=== PATIENT | male | born 1945 | race Caucasian/White ===

== ENCOUNTER → 2021-01-20 08:37 | Outpatient (CLI) | payer MEDICARE ==
--- NOTE | ~2021-01-20 | ST ---
PATIENT:STONEY STEWART MEDICAL RECORD: [id number] SEX: M [facility] ORDER #: ADMISSION DATE: 01/20/21 AGE OF PATIENT: 75 REFERRING PHYSICIAN: INTERPRETING PHYSICIAN: CRISTHIAN KNOWLES MD DATE OF SERVICE: 01/20/2021 NUCLEAR STRESS TEST GATED: Gated is normal with normal wall motion. Normal EF 64%. SPECT IMAGING: SPECT imaging was performed. Short axis view: Short axis view shows reversible defect from the inferior base down to the mid inferior wall. Horizontal axis: This is confirmed in the horizontal axis with a reversible defect from the inferior base down to the mid inferior wall. Vertical axis: Vertical axis shows good uptake along the lateral wall and septum. FINAL IMPRESSION: 1. Normal gated, normal wall motion, normal EF of 64%. 2. Abnormal SPECT imaging. Reversible defect from the inferior base down the mid inferior wall seen at 2 views. FINAL IMPRESSION: This gentleman with new onset of angina symptomatology. Scan is concerning for initial onset of angina, consider diagnostic angiography. TRANSINT:[id number] Voice Confirmation ID: [id number] DOCUMENT ID: [id number] CRISTHIAN KNOWLES MD CC: [id number] DICTATION DATE: 01/21/21 1351 MERCHANDISE SHOPPER: 01/22/21 0629 DEP CLI 01/20/21 [place] [id number] [place] [id number]
--- NOTE | ~2021-01-20 | EC ---
PATIENT:STONEY STEWART DATE OF SERVICE: 01/20/21 SEX: M MEDICAL RECORD: [id number] DATE OF : 47 [facility] AGE [facility] PAT[facility]: 75 ADMISSION DATE: 01/20/21 REFERRING PHYSICIAN: INTERPRETING PHYSICIAN: CRISTHIAN KNOWLES MD ECHOCARDIOGRAM REPORT ECHO CHARGES 4 ECHO COMPLETE Date: 01/20/21 CLINICAL DIAGNOSIS: HTN/HEART MURMUR ECHOCARDIOGRAPHIC MEASUREMENTS (adult normal given) AC root (d.<3.7cm) 4.0 cm LV Septum d (<1.2 cm> 1.4 cm Valve Excursion 1.8 cm LV Septum (systole) 1.7 cm Left Atria (s.<4.0cm> 3.4 cm LVPW d(<1.2cm) 1.5 cm RV (d.<2.3cm) 3.4 cm LVPW (sytole) 2.0 cm LV diastole(<5.6CM) 5.0 cm MV E-F(>70mm/sec) cm LV systole 3.6 cm LVOT Diameter 2.0 cm MV exc.(>10mm) 1.5 cm Est.ejection fraction (50-75%) % DOPPLER: LVIT cm/sec A 65.0 cm/sec E 41.0 cm/sec LA cm/sec RVSP 16 mmHg LVOT 97 cm/sec AOP1/2T m/s Asc. Ao 120 cm/sec RVOT 67 cm/sec RA cm/sec PA 150 cm/sec AV Gradient Peak 5.79 mmHg AV Mean 2.73 mmHg AV Area 2.9 cm MV Gradient Peak 2.48 mmHg MV Mean 0.84 mmHg MV Area cm COMMENTS: Building Admin: 2 OUSMANE OLVERA Cargo Inspector: 3 Dr. Beckham TAPE# PACS Pericardial Effusion N DATE OF SERVICE: Adequate 2D, color-flow imaging, spectral Doppler, and M-Mode FINDINGS: LVH is present. LV internal dimensions are normal. Wall motion is normal. EF is greater than or equal to 55%. Aortic valve is sclerotic. No evidence of stenosis by Doppler interrogation. Left atrium is normal at 3.4 cm. Mitral valve shows no prolapse. Trace MR. Right side is grossly normal. Trace TR. ECHOCARDIOGRAM REPORT [id number] STONEY STEWART TRANSINT:[id number] Voice Confirmation ID: [id number] DOCUMENT ID: [id number] CRISTHIAN KNOWLES MD CC: [id number] DICTATION DATE: 01/21/21 1358 STRUCTURAL STEEL ERECTOR: 01/21/21 1605 DEP CLI 01/20/21 [place] [id number]
== END | disposition home or self-care (01) ==
LOC: D.HCCARDIO 08:37 → D.HCCECHO 10:30
PROVIDERS: ATTEND Internal Medicine Interventional Cardiology
DX: I20.9 Angina pectoris, unspecified (principal); I10 Essential (primary) hypertension

== ENCOUNTER 2021-01-28 10:55 | Day surgery (SDC) | payer MEDICARE ==
[~2021-01-28] VITALS: Ht 188 cm; Wt 98.2 kg
--- NOTE | ~2021-01-28 | HEMODYNAMI ---
PATIENT:STONEY STEWART MEDICAL RECORD: [id number] : 47 LOCATION:[facility] ADMISSION DATE: 01/28/21 Generatedon:113:17 Patient name: STONEY STEWART Patient #: [id number] SSN: [id number] : 1945 Date of study: 01/28/2021 Page: Of Hemodynamic Procedure Report Patient Data Patient Demographics Procedure consent was obtained First Name: STONEY Gender: Male Last Name: TERRY : 1945 [facility] Initial: YAMILET Age: 75 year(s) Patient #: [id number] Race: SSN: [id number] Additional ID: [id number] Contact details Address: [place] [address] State: [place] City: [place] Zip code: [address] Past Medical History Allergies: No known allergies Admission Admission Data Admission Date: 01/28/2021 Admission Time: 10:55 Arrival Date: 01/28/2021 Arrival Time: 0:00 Admit Source: Other Insurance Payor: Medicare [facility] #: [id number] Height (in.): 74 BSA: 2.26 (m2) Height (cm.): 187.96 BMI: 28.25 (kg/m2) Weight (lbs.): 220 Weight (kg.): 99.79 Lab Results Lab Result Date: 01/28/2021 Lab Result Time: 0:00 Biochemistry Name Units Result Min Max BUN mg/dl 28 --(----)-* 7 18 Creatinine mg/dl 1.2 --(---*)-- 0.6 1.3 eGFR ml/min 63 *-(----)-- 90 120 NONAFRICAN CBC Name Units Result Min Max Hematocrit % 42.1 --(*---)-- 42 54 Hemoglobin g/dl 14.4 --(*---)-- 13.5 17.5 Procedure Procedure Types Cath Procedure Diagnostic Procedure [facility] w/Coronaries Sedation Charges Moderate Sedation 10-24 minutes Procedure Description Procedure Date Procedure Date: 01/28/2021 Procedure Start Time: 13:03 Procedure End Time: 13:16 Procedure Staff Name Function Vidal Kowalski MD Performing Physician Shanell Elliott RT Monitor Michele Pleitez RN Nurse Alexsandra Go RT Scrub Indication Arrhythmias Procedure Data Cath Procedure Fluoroscopy Diagnostic fluoroscopy Total fluoroscopy Time: 4.7 time: 4.7 min min Diagnostic fluoroscopy Total fluoroscopy dose: 879 dose: 879 mGy mGy Contrast Material Contrast Material Type Amount (ml) Isovue 370 67 Entry Location Entry Primary Successful Side Size Upsize Upsize Entry Closure Barth ccessful Closure Location (Fr) 1 (Fr) 2 (Fr) Remarks Device Remarks Radial Right 6 Fr Mechanical artery Short Compression Estimated blood loss: 5 ml Diagnostic catheters Device Type Used For End Catheter Placement DIAGNOSTIC Penfield 110cm 5 Procedure Fr catheter ([id number]) Procedure Complications No complications Procedure Medications Medication Administration Route Dosage 0.9% NaCl I.V. 100 ml/hr Oxygen etCO2 Nasal cannula 2 l/min Heparin Flush Bag added to field 2 bags (1000units/500ml NS) Lidocaine 2% added to field 20 Radial Cocktail added to field 1 syringe (Verapamil 2mg/Nitro 400mcg/Heparin 1500units) Benadryl I.V. 50 mg Versed I.V. 1 mg Fentanyl I.V. 50 mcg Radial Cocktail I.A. 1 syringe (Verapamil 2mg/Nitro 400mcg/Heparin 1500units) Hemodynamics Rest BSA: 2.26 (m2) HGB: 14.4 (g/dl) O2 Consumption: Estimated: 247.63 (ml/min) O2 Co nsumption indexed: Estimated:109.57 (ml/min/m) Heart Rate: 55 (bpm) Pressure Samples Time Site Value (mmHg) Purpose Heart Use Rate(bpm) 13:05 LV 0/-52,-10 Snapshot 133 Gradients Valve Time Site Site Mean SEP/DFP Peak To Heart Use 1 2 (mmHg) (sec/min) Peak Rate (mmHg) (bpm) Aortic 13:05 LV AO 37 Snapshots Pre Cath Intra NCS Post Cath Vital Signs Time Heart Resp SPO2 etCO2 NIBP Rhythm Pain Sedation Rate (ipm) (%) (mmHg) (mmHg) Status Level (bpm) 12:52:04 55 19 93 3.7 88/55(68) NSR 0 (11) 10(A) , No pain 12:56:06 56 14 92 12.6 89/54(68) NSR 0 (11) 10(A) , No pain 13:00:04 55 16 92 40.1 93/65(71) NSR 0 (11) 10(A) , No pain 13:04:05 56 16 94 40.8 94/60(66) NSR 0 (11) 9(A) , No pain 13:08:11 48 15 91 37.1 71/47(65) NSR 0 (11) 9(A) , No pain 13:12:58 57 15 93 39.3 79/49(62) NSR 0 (11) 9(A) , No pain 13:16:55 57 18 93 40.8 84/52(67) NSR 0 (11) 9(A) , No pain Medications Time Medication Route Dose Verified Delivered Reason Notes Effectiveness by by 12:51:24 0.9% NaCl I.V. 100 Michele Michele Per ml/hr Pricilla Pleitez physician RN RN 12:51:35 Oxygen etCO2 2 l/min Michele Michele for low 02 Nasal Lorigan Lorigan sats cannula RN RN 12:51:46 Heparin Flush added 2 bags Michele Michele used for Bag to Lorcharles Pleitez procedure (1000units/500ml field RN RN NS) 12:51:55 Lidocaine 2% added 20ml Michele Michele for local to vial Lorigan Lorigan anesthetic RN RN 12:52:07 Radial Cocktail added 1 Michele Michele used for (Verapamil to syringe Lorigan Lorigan procedure 2mg/Nitro RN RN 400mcg/Heparin 1500units) 12:55:17 Benadryl I.V. 50 mg Michele Michele Per Pricilla Pleitez physician RN RN 13:04:00 Versed I.V. 1 mg Michele Michele for sedation Pricilla Pleitez RN RN 13:04:09 Fentanyl I.V. 50 mcg Michele Michele for sedation Pricilla Pleitez RN RN 13:04:35 Radial Cocktail I.A. 1 Michele Vidal for (Verapamil syringe Lorigan [place] vasodilation 2mg/Nitro MIGUELANGEL LAO 400mcg/Heparin 1500units) Procedure Log Time Note 12:29:59 Informed consent obtained and on chart 12:30:18 Diagnostic Cath Status : Elective 12:30:38 Indication : Arrhythmias 12:30:43 Arrival Date: 01/28/2021 12:00:00 AM 12:30:44 Admit Source: Other 12:30:47 Insurance Payor : Medicare 12:32:06 Patient Height : 74 inches 12:32:13 Patient Weight : 220 lbs 12:32:25 ACC Patient presents with Stable Angina CCS Anginal Class 2--Slight limitation of ordinary activity. 12:32:28 Procedure Status Elective Heart Cath (OP). 12:32:30 Time tracking: Regular hours (M-F 7:00 - 5:00) 12:32:34 Plan of Care:Hemodynamics will remain stable., Cardiac rhythm will remain stable., Comfort level will be maintained., Respiratory function will remain adequate., Patient/ family verbilizes understanding of procedure., Procedure tolerated without complication., Recovers from procedure without complications.. 12:32:41 H&P Date Dictated: 01/12/2021 Within 30 days and on chart.. 12:32:42 Pre-procedure instructions explained to patient. 12:32:43 Pre-op teaching completed and patient verbalized understanding. 12:32:44 Family in waiting room. 12:32:46 Patient NPO since Midnight. 12:32:53 Patient allergic to No known allergies 12:32:57 Alarms reviewed by R. N. 12:32:57 Sharps counted by scrub and verified by R.N. 12:37:52 Lab Result : eGFR NONAFRICAN 63 ml/min 12:37:52 Lab Result : Hemoglobin 14.4 g/dl 12:37:52 Lab Result : BUN 28 mg/dl 12:37:52 Lab Result : Creatinine 1.2 mg/dl 12:37:52 Lab Result : Hematocrit 42.1 % 12:38:24 Michele Pleitez RN sent for patient. Start room use. 12:42:06 Patient received from Pre/Post Procedure Room to CCL 2 Alert and oriented. Tansferred to table in Supine position. 12:42:07 Warm blankets applied, and melyssa hugger turned on for patient comfort. 12:42:08 Correct patient and procedure confirmed by team. 12:42:08 ECG and BP/O2 sat monitors applied to patient. 12:42:17 Is the patient allergic to Iodine/contrast media? No. 12:42:19 Was the patient premedicated? Yes 12:42:20 Is patient on blood thinner?No 12:42:22 Patient diabetic? Yes. 12:42:24 If diabetic: On Metformin? Yes 12:51:03 Vital chart was started 12:51:04 Full Disclosure recording started 12:51:07 Rhythm: sinus bradycardia 12:51:09 Baseline sample Acquired. 12:51:17 If on Metformin: Last Dose? 01/26/2021 12:51:18 ----Pre-sedation anethsthesia assessment.---- 12:51:21 Previous problem with sedation/anesthesia? No ? 12:51:22 Snore? Yes 12:51:23 Sleep apnea? Yes 12:51:24 0.9% NaCl 100 ml/hr I.V. was administered by Michele Pleitez RN; Per physician; Verbal order read back and verified. 12:51:24 Deviated septum? No 12:51:25 Opens mouth fully? Yes 12:51:26 Sticks out tongue? Yes 12:51:28 Airway obstruction? No ? 12:51:30 Dentures? No ] 12:51:35 Oxygen 2 l/min etCO2 Nasal cannula was administered by Michele Pleitez RN; for low 02 sats; Verbal order read back and verified. 12:51:35 Pre procedure: right dorsailis pedis pulse 1+ Palpable, but thready & weak; easily obliterated 12:51:38 Modified Alphonse's test Ulnar < 7 seconds 12:51:40 Patient pain scale 0/10 ?. 12:51:46 Heparin Flush Bag (1000units/500ml NS) 2 bags added to field was administered by Michele Pleitez RN; used for procedure; Verbal order read back and verified. 12:51:46 IV patent on arrival in left antecubital with 0.9% NaCl at [facility]. 12:51:51 Lab results completed and on chart. 12:51:55 Lidocaine 2% 20ml vial added to field was administered by Michele Pleitez RN; for local anesthetic; Verbal order read back and verified. 12:52:07 Radial Cocktail (Verapamil 2mg/Nitro 400mcg/Heparin 1500units) 1 syringe added to field was administered by Michele Pleitez RN; used for procedure; Verbal order read back and verified. 12:53:24 Stress Test: yes; abnormal INFERIOR 12:55:00 Risk of Mortality: 0.1 12:55:02 Risk of blood transfusion: 0.1 12:55:04 Risk of DAWN: 0.2 12:55:08 Right Radial & Right Groin area was prepped with chlora-prep and draped in sterile fashion 12:55:16 Use device set Radial Dx or PCI 12:55:17 Benadryl 50 mg I.V. was administered by Michele Pleitez RN; Per physician; Verbal order read back and verified. 12:55:18 ACIST Syringe (64091) opened to sterile field. 12:55:18 Medline Cath Pack ([id number]) opened to sterile field. 12:55:19 Bag Decanter (2002S) opened to sterile field. 12:55:20 ACIST Hand Control (48885) opened to sterile field. 12:55:21 ACIST Manifold (15421) opened to sterile field. 12:55:23 EMERALD Guide Wire (068-604) opened to sterile field. 12:55:23 SHEATH 6FR RAIN (2279909) opened to sterile field. 12:55:29 MBrace Wrist Support ([id number]) opened to sterile field. 13:00:00 Right groin site verified by team. 13:00:00 Final Timeout: patient, procedure, and site verified with staff and physician. All members of the team are in agreement. 13:00:00 --------ALL STOP TIME OUT------ 13:00:01 Fire Safety Assessment: A--An alcohol-based skin anteseptic being used preoperatively., C--Open oxygen or nitrous oxide is being used., D--An ESU, laser, or fiber-optic light is being used. 13:00:02 Physical assessment completed. ASA score P 2 - A patient with mild systemic disease as per Vidal Kowalski MD. 13:00:03 2) 60-89 Mildly reduced kidney function, and other findings (as for stage 1) point to kidney disease. 13:00:04 Sedation plan: IV Moderate Sedation Medication:Versed, Fentanyl 13:00:04 Maximum allowable contrast dose (3.7 X eGFR X 0.75)175 ml. 13:03:27 Procedure started. 13:03:32 Local anesthetic to right radial artery with Lidocaine 2% by Vidal Kowalski MD.INITIAL ACCESS ONLY 13:03:42 A 6 Fr Short sheath was inserted into the Right Radial artery 13:03:50 A DIAGNOSTIC Penfield 110cm 5 Fr catheter (212115) was advanced over the wire and used for Procedure. 13:04:00 Versed 1 mg I.V. was administered by Michele Pleitez RN; for sedation; Verbal order read back and verified. 13:04:09 Fentanyl 50 mcg I.V. was administered by Michele Pleitez RN; for sedation; Verbal order read back and verified. 13:04:35 Radial Cocktail (Verapamil 2mg/Nitro 400mcg/Heparin 1500units) 1 syringe I.A. was administered by Vidal Kowalski MD; for vasodilation; Verbal order read back and verified. 13:04:53 LV gram done using [place] 13:05:02 Injector settings: Ml/sec: 5, Volume: 15, 13:05:22 LV hemodynamics recorded. 13:05:30 EF : 55 % 13:06:25 Catheter exchanged over wire. 13:07:33 GUIDE 6FR XBLAD 4.0 catheter ([id number]) opened to sterile field. 13:08:19 LCA angiography performed. 13:08:22 Injector settings: Ml/sec: 3, Volume: 6, 13:10:03 GUIDE 6FR AR 1.0 catheter (QN5VG91) opened to sterile field. 13:12:17 RCA angiography performed. 13:12:20 Injector settings: Ml/sec: 3, Volume: 6, 13:13:00 ACCDominant side:Left 13:13:02 Catheter removed. 13:13:06 ZEPHYR REGULAR TR BAND (114177) opened to sterile field. 13:13:17 Sheath removed intact; hemostasis achieved with Mechanical Compression to the Right Radial artery. 13:13:54 Fluoroscopy time 04.70 minutes. 13:13:58 Fluoroscopy dose: 879 mGy 13:13:58 Flurop Dose total: 879 13:14:00 Procedure ended.(Physican Out) 13:14:04 Dose Area Product 80989 mGy/cm. 13:14:21 Contrast amount:Isovue 370 67ml. 13:14:24 Maximum allowable dose exceeded? No. 13:14:25 Sharps counted by scrub and verified by R.N. 13:14:28 [place] band inflated with 10cc of air. 13:14:29 Post Procedure Pulses reassessed and unchanged 13:14:32 Post procedure: right dorsailis pedis pulse 1+ Palpable, but thready & weak; easily obliterated. 13:14:34 Post-procedure physical assessment completed. ASA score P 2 - A patient with mild systemic disease as per Vidal Kowalski MD. 13:14:37 Post procedure rhythm: unchanged. 13:14:40 Estimated blood loss: 5 ml 13:14:41 Post procedure instruction explained to patient.Patient verbalizes understanding. 13:14:42 Patient needs reinforcement of post procedure teaching. 13:15:42 Procedure type changed to Cath procedure, Diagnostic procedure, LHC, LHC w/Coronaries, Sedation Charges, Moderate Sedation 10-24 minutes 13:15:43 Procedure and supply charges have been captured, reviewed, submitted and are correct. 13:15:47 Procedure Complication : No complications 13:15:51 LHC Findings: mild to moderate CAD (<70%) 13:15:52 Operative report dictated upon procedure completion. 13:15:53 See physician's report for complete and final results. 13:15:55 Report given to Pre/Post Procedure Room. 13:16:01 Patient transfered to Pre/Post Procedure Room with Stretcher. 13:16:03 Procedure ended. 13:16:03 Full Disclosure recording stopped 13:16:08 End room use (Document Last) 13:16:28 End room use (Document Last) 13:16:48 End room use (Document Last) 13:17:07 Vital chart was stopped Device Usage Item Name Manufacture Quantity Catalog Hospital Part Current Minima l Lot# / Number Charge Number Stock Stock Serial# Code ACIST Acist 1 12879 [id number] 653061 590332 20 Syringe Medical (50259) Systems Inc Medline Medline 1 [id number] 391344 39824 179081 5 Cath Pack ([id number]) Bag Microtek 1 915758 29123 853044 5 Decanter Medical Inc. () ACIST Hand Acist 1 21193 218524 537398 740803 5 Control Medical (65196) Systems Inc ACIST Acist 1 92625 541143 244515 279531 5 Manifold Medical (25824) Systems Inc EMERALD Cardinal 1 502-875 036835 672147 498240 5 Guide Wire Health (053-455) SHEATH 6FR Cardinal 1 4031936 195184 9880358 840609 5 RAIN Health (9718057) MBrace Advanced 1 140-0250-00 749002 96737 795500 5 Wrist Vascular Support Dynamics ([id number]) DIAGNOSTIC Terumo 1 40-0673 415290 633615 243797 5 Penfield 110cm 5 Fr catheter (338220) GUIDE 6FR Cardinal 1 [id number] 163751 874034 571286 3 XBLAD 4.0 Health catheter (48274824) GUIDE 6FR Medtronic 1 [id number] 332474 50832 697011 1 AR 1.0 catheter (VM0SI74) ZEPHYR Cardinal 1 820015 658410 3160881 866251 5 REGULAR TR Health BAND (647085) Signature Audit [place] Stage Time Signature Unsigned Intra-Procedure 01/28/2021 Shanell Elliott 1:16:28 PM RT(R) Intra-Procedure 01/28/2021 Michele 1:16:48 PM Pricilla RN Intra-Procedure 01/28/2021 Vidal Jeronimo 1:17:05 PM Kamran LAO Signatures Performing Physician : Signature : Vidal Kowalski MD Date : Time : Monitor : Shanell Elliott Signature : RT Date : Time : Nurse : Michele Pleitez Signature : RN Date : Time : [facility] [address] [place] [address]
[2021-01-28] MEDS ORDERED: GLUCOPHAGE1000 MG PO (11:12)
[2021-01-28] MEDS ORDERED: FARXIGA10 MG PO (11:12)
[2021-01-28] MEDS ORDERED: OMEPRAZOLE20 M1 PO (11:13)
[2021-01-28] MEDS ORDERED: LISINOPRIL5 MG PO (11:13)
[2021-01-28] MEDS ORDERED: FLUTICASONE PRO16 GM NASAL (11:13)
[2021-01-28] MEDS ORDERED: LOPRESSOR25 MG PO (11:14)
[2021-01-28] MEDS ORDERED: PRAVACHOL40 MG PO (11:14)
[2021-01-28] MEDS ORDERED: PAXIL20 MG PO (11:15)
[2021-01-28] MEDS ORDERED: MULTI-DAY VITAM1 TAB PO (11:16)
[2021-01-28] MEDS ORDERED: ASPIRIN325 MG PO (11:16)
[2021-01-28] MEDS ORDERED: STOOL SOFTENER100 M1 PO (11:17)
[2021-01-28] MEDS ORDERED: SUPER B COMPLE1 EAC1 PO (11:17)
[2021-01-28] MEDS ORDERED: VITAMIN C500 M1 PO (11:17)
[2021-01-28 11:23] VITALS: BP 92/61; Ht 188 cm; Wt 98.2 kg
[2021-01-28 12:02] LABS: ANION GAP 13.2 mmol/L (8-16); CALCIUM 9.4 mg/dL (8.5-10.1); CARBON DIOXIDE 25.5 mmol/L (21.0-32.0); CHOL - HDL RATIO 3.2 ratio (2.3-4.9); CREATININE - SERUM 1.2 mg/dL (0.6-1.3); LDL-HDL RATIO 1.8 ratio (1.5-3.5); POTASSIUM - SERUM 4.7 mmol/L (3.5-5.1)
[2021-01-28 12:07] LABS: BASOPHILS 0.3 % (0-2); EOSINOPHILS 3.8 % (0-7); HEMATOCRIT 42.1 % (42.0-54.0); HEMOGLOBIN 14.4 g/dL (13.5-17.5); IMMATURE GRANULOCYTES 0.2 % (0-5); LYMPHOCYTE ABS# 1.53 10x3/uL (1.32-3.57); LYMPHOCYTES 25.2 % (15-50); MCH 31.9 pg (26.0-34.0); MCHC 34.2 g/dL (31.0-37.0); MCV 93.3 fL (80.0-100.0); MEAN PLATELET VOLUME 10.1 fL (7.4-10.4); MONOCYTES 10.6 % (2-11); NEUTROPHIL ABS# 3.63 10x3/uL (1.78-5.38); NEUTROPHILS 59.9 % (40-80); PLATELET COUNT 253 10x3/uL (130-400); RBC 4.51 10x6/uL (4.20-6.10); RDW 12.6 % (11.5-14.5); WBC 6.1 10x3/uL (4.8-10.8)
--- NOTE | 2021-01-28 13:30 | NUR ---
PT ARRIVED BY STRETCHER. PLACED ON MONITORS. ASSESSMENT COMPLETED. VSS AT THIS TIME. PT'S AT BEDSIDE. CALL LIGHT WITHIN REACH.
--- NOTE | 2021-01-28 13:45 | NUR ---
RIGHT RADIAL Z BAND IN PLACE. NO BLEEDING/HEMATOMA NOTED. CALL LIGHT WITHIN REACH. VSS. FAMILY AT BEDSIDE. PT RESTING COMFORTABLY. NO NEEDS AT THIS TIME.
--- NOTE | 2021-01-28 14:15 | NUR ---
PT RESTING COMFORTABLY. VSS. RIGHT WRIST Z BAND IN PLACE. NO BLEEDING/HEMATOMA NOTED. CALL LIGHT WITHIN REACH.
--- NOTE | 2021-01-28 14:30 | NUR ---
2cc OF AIR REMOVED FROM Z BAND. NO BLEEDING/HEMATOMA NOTED. PT MORE ALERT. SET UP WITH SANDWICH TRAY AND DRINK. DENIES NAUSEA/PAIN. VSS. CALL LIGHT WITHIN REACH.
--- NOTE | 2021-01-28 14:45 | NUR ---
3cc OF AIR REMOVED FROM Z BAND. NO BLEEDING/HEMATOMA NOTED. CALL LIGHT WITHIN REACH. VSS AT THIS TIME.
--- NOTE | 2021-01-28 15:02 | NUR ---
5cc OF AIR REMOVED FROM Z BAND. NO BLEEDING/HEMATOMA NOTED. CALL LIGHT WITHIN REACH. VSS AT THIS TIME. PT RESTING COMFORTABLY. DENIES NAUSEA/PAIN.
--- NOTE | 2021-01-28 15:15 | NUR ---
Z BAND REMOVED AND DRESSING APPLIED. NO BLEEDING/HEMATOMA NOTED. VSS.
--- NOTE | 2021-01-28 15:30 | NUR ---
PIV D/C'D WITH CATH TIP INTACT. TOLERATED WELL. RIGHT WRIST DRESSING C/D/I. NO S/S OF HEMATOMA. DISCUSSED DISCHARGE INSTRUCTIONS WITH PT AND PT'S FAMILY. THEY VOICED UNDERSTANDING. PT INSTRUCTED TO GET UP AND DRESSED AT THIS TIME. AT BEDSIDE TO ASSIST.
--- NOTE | 2021-01-28 15:40 | NUR ---
PT AMBULATED TO RESTROOM. VOIDED WITHOUT DIFFICULTY. STEADY GAIT NOTED.
--- NOTE | 2021-01-28 15:45 | NUR ---
RIGHT WRIST DRESSING C/D/I. NO S/S OF HEMATOMA NOTED. PT TAKEN OUT TO THE VEHICLE BY WHEELCHAIR. NO S/S OF DISTRESS NOTED. ALL BELONGINGS AND PAPERWORK IN HAND.
--- NOTE | 2021-02-01 10:43 | OP ---
PATIENT NAME: STONEY STEWART MEDICAL RECORD: [id number] :47 LOCATION:D.CAT ADMISSION DATE: SURGEON: CRISTHIAN KNOWLES MD DATE OF OPERATION: 01/28/2021 PROCEDURE: Left heart catheterization, selective coronary angiography, right femoral artery approach. CATHETERS: A 5-Cuban sheath, 5/4 left and right Adolfo, 5/4 pig. The procedure was well tolerated. The patient was returned to the [place]. Sheath removed. TR band was placed. FINDINGS: Left ventriculography in 30-degree [place] view: Normal wall motion and normal systolic function. CORONARY ANATOMY: LEFT MAIN: Left main is free of disease. LAD: Free of disease in the diagonal system. CIRCUMFLEX: Free of disease in the marginal system. RIGHT CORONARY ARTERY: Dominant artery, gives rise to PDA, free of disease. IMPRESSION: Normal LV systolic function. Normal coronary anatomy. TRANSINT:[id number] Voice Confirmation ID: [id number] DOCUMENT ID: [id number] CRISTHIAN KNOWLES MD at 1043 CC: [id number] DICTATION DATE: 01/28/21 1321 RENAL DIALYSIS TECHNICIAN: 01/28/21 1445 [facility] 01/28/21 [facility] [address] [place] [address]
== END 2021-01-28 15:45 | disposition home or self-care (01) ==
LOC: D.CATH 10:55
PROVIDERS: ATTEND Internal Medicine Interventional Cardiology
DX: I49.9 Cardiac arrhythmia, unspecified (principal); I10 Essential (primary) hypertension; E78.5 Hyperlipidemia, unspecified; E11.9 Type 2 diabetes mellitus without complications; R01.1 Cardiac murmur, unspecified; R94.30 Abnormal result of cardiovascular function study, unspecified; R06.02 Shortness of breath